=== PATIENT | female | born 1945 | race Caucasian/White ===

== ENCOUNTER 2017-08-22 06:58 | Emergency (ER) | payer OTHER, BC ==
[~2017-08-22] VITALS: Ht 177.8 cm; Wt 77.9 kg
[2017-08-22 07:11] VITALS: TEMP 36.8; Ht 177.8 cm; Wt 77.9 kg
[2017-08-22] MEDS ORDERED: SODIUM CHLORIDE 0.9% 1000ML 1,000 ML IV STA (07:25)
[2017-08-22 07:40] LABS: BASO % 0.2 %; BASO ABS # 0.01 K/uL (0-0.2); EOS % 0.2 %; EOS ABS # 0.01 K/uL (0-0.5); HEMATOCRIT 40.1 % (37-47); HEMOGLOBIN 13.7 g/dL (12.0-16.0); IG# 0.01 K/uL (0.00-0.02); LYMPH % 19.3 %; LYMPH ABS # 0.88 K/uL (1.2-3.4); MEAN CELL VOLUME 92.4 fL (80-100); MEAN CORPUSCULAR HEMOGLOBIN 31.6 pg (25-34); MEAN CORPUSCULAR HGB CONC 34.2 g/dl (32-36); MEAN PLATELET VOLUME 10.9 fL (7.4-10.4); MONO % 7.4 %; MONO ABS # 0.34 K/uL (0.11-0.59); NEUT % 72.7 %; NEUT ABS # 3.32 K/uL (1.4-6.5); PLATELET COUNT 165 K/uL (130-400); WHITE BLOOD COUNT 4.57 K/uL (4.8-10.8)
--- NOTE | 2017-08-22 07:40 | DIAGNOSTIC IMAGING REPORT ---
CHEST ONE VIEW PORTABLE CLINICAL HISTORY: fever COMPARISON STUDY: No previous studies for comparison. FINDINGS: The cardiac and mediastinal contours are normal. There is no evidence of focal pulmonary consolidation. There is no evidence of failure. No pleural effusions are visualized.[ IMPRESSION: No active disease in the chest. Electronically signed by: Tashi Valerio M.D. 08/22/2017 7:38 AM Dictated Date/Time: 08/22/2017 7:38 AM
[2017-08-22] MEDS ORDERED: OPTIRAY 320 IV PRN (07:45)
[2017-08-22 07:54] LABS: ALBUMIN 3.7 gm/dl (3.4-5.0); ALT/SGPT 24 U/L (12-78); BLOOD UREA NITROGEN 14 mg/dl (7-18); CALCIUM 8.7 mg/dl (8.5-10.1); CARBON DIOXIDE 25 mmol/L (21-32); CREATININE 0.86 mg/dl (0.60-1.20); GLUCOSE 103 mg/dl (70-99); LIPASE 196 U/L (73-393); POTASSIUM 3.7 mmol/L (3.5-5.1); SODIUM 137 mmol/L (136-145)
[2017-08-22 07:56] LABS: ALKALINE PHOSPHATASE 67 U/L (45-117); AST/SGOT 24 U/L (15-37); TOTAL PROTEIN 7.5 gm/dl (6.4-8.2)
[2017-08-22] MEDS ORDERED: SIMV5TAB2 PO (08:01)
[2017-08-22] MEDS ORDERED: LEVO25TA PO (08:01)
--- NOTE | 2017-08-22 08:42 | DIAGNOSTIC IMAGING REPORT ---
HEAD CT NONCONTRAST CT DOSE: HISTORY: b/l sinus pain TECHNIQUE: Multiaxial CT images of the head were performed without the use of intravenous contrast. Automated exposure control was utilized for this study. A dose lowering technique was utilized adhering to the principles of ALARA. Comparison: None. Findings: Small retention cysts within the floor of the right maxillary sinus. Otherwise, the paranasal sinuses and mastoid air cells are clear. The calvarium and skull base are intact. The ventricles and sulci are within normal limits. There is no mass, hematoma, midline shift, or acute infarct. Impression: No acute intracranial abnormality. Electronically signed by: Vipin Hays M.D. 08/22/2017 8:40 AM Dictated Date/Time: 08/22/2017 8:38 AM
--- NOTE | 2017-08-22 08:46 | DIAGNOSTIC IMAGING REPORT ---
CT ABD/PELVIS IV CONTRAST ONLY CLINICAL HISTORY: Abdominal and back pain COMPARISON STUDY: None. TECHNIQUE: Following the IV administration of 91 mL of Optiray-320, CT scan of the abdomen and pelvis was performed from the lung bases to the proximal femurs. Images are reviewed in the axial, sagittal, and coronal planes. IV contrast was administered without complication. A dose lowering technique was utilized adhering to the principles of ALARA. CT DOSE: 1274.64 mGy.cm FINDINGS: Lower chest: There are dependent atelectatic changes present. There is respiratory motion artifact. Liver: The contrast-enhanced liver is normal in size, contour, and attenuation. There is no intrahepatic biliary ductal dilatation. The hepatic veins and portal veins are patent. Gallbladder: Unremarkable. Spleen: Normal in size and attenuation. Pancreas: Unremarkable. Adrenal glands: Unremarkable. Kidneys: There is symmetric renal cortical enhancement. The kidneys are normal in size without hydronephrosis. Bowel: There are no transition zones indicate bowel obstruction. There is colonic diverticulosis. There are no acute peridiverticular inflammatory changes. There is no evidence of acute appendicitis. Visualization of the bowel is degraded due to motion artifact. Soft tissue prominence of the transverse colon, likely is secondary to visualization of enteric contents. It would be difficult with certainty to exclude a polypoid lesion. Peritoneum: There is no intraperitoneal free air or abdominal ascites. Vasculature: The abdominal aorta is normal in course and caliber. Adenopathy: None. Pelvic viscera: There is a 37 mm right uterine fundal fibroid. Skeletal structures: No destructive osseous lesions are seen. IMPRESSION: 1. Study slightly compromised due to motion artifact 2. No evidence of bowel obstruction. No evidence of free air 3. Diverticulosis. No evidence of acute diverticulitis 4. No evidence of acute appendicitis 5. 37 mm right uterine fundal fibroid Electronically signed by: Tashi Valerio M.D. 08/22/2017 8:44 AM Dictated Date/Time: 08/22/2017 8:38 AM
--- NOTE | 2017-08-22 10:17 | DIAGNOSTIC IMAGING REPORT ---
LUMBAR SPINE MRI WITH AND WITHOUT CONTRAST HISTORY: fevers w/ lower back pain TECHNIQUE: Multiplanar multisequence MRI of the lumbar spine was performed both before and after the intravenous administration of contrast. COMPARISON: None. FINDINGS: For the purpose of the report the L5-S1 disc space will be located on axial image 23 of 25. No fracture. No subluxation. Disc spaces are preserved. The conus terminates at the L1-L2 disc space level. No disc herniations. Mild facet osteoarthritis seen within the mid to lower lumbar spine. 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 No abnormal enhancement. No evidence for discitis/osteomyelitis. No paravertebral or epidural soft tissue masses or fluid collections. L1-L2: No significant central canal or neural foraminal narrowing. L2-L3: No significant central canal or neural foraminal narrowing. L3-L4: No significant central canal or neural foraminal narrowing. L4-L5: No significant central canal or neural foraminal narrowing. L5-S1: No significant central canal or neural foraminal narrowing. IMPRESSION: No significant abnormality identified within the lumbar spine. Electronically signed by: Vipin Hays M.D. 08/22/2017 10:16 AM Dictated Date/Time: 08/22/2017 10:08 AM
[2017-08-22 10:43] VITALS: BP 160/81; PULSE 67; O2SAT 95
--- NOTE | 2017-08-22 13:23 | EMERGENCY ROOM VISIT NOTE ---
History Report prepared by Racheal: Nomi Fraser Under the Supervision of: Dr. Flavio Cassidy D.O. First contact with patient: 07:14 Chief Complaint: FEVER Stated Complaint: FEVER,LWR BACK PAIN-HAD BLOOD WORK,X-RAY 3 History of Present Illness The patient is a 72 year old female who presents to the Emergency Room with complaints of waxing and waning lower back pain that started 5 nights ago. She states that for no reason at all, she stared having excruciating lower back pain , and says that she no history of back pain like this. The patient says that the pain does not change with twisting, turning, or bending. She notes that she took Advil the night of onset, and the pain went away, but the pain kept coming back, and she has been taking more Advil since then. The patient says that the pain causes her to have trouble sleeping at night. She rates the pain as a 9 out of 10 in severity. She notes that 3 nights ago, she started feeling feverish , and states that the highest reported temperature was 100.1, but last night, she thinks that her temperature went above 100.4, but it was not reported. She adds that last night, she felt a lot of sinus pressure and pain, and took a sinus decongestant. The patient states that she took Advil around 2 hours ago because her pain was bad. She says that she had an x-ray done yesterday at [facility]. The patient denies headache, change in vision, chest pain, shortness of breath, nausea, vomiting, diarrhea, weakness, numbness, pain with urination, and melena. She notes that she has not had any recent surgeries. The patient says that her last bowel movement was this morning. She notes no other medical problems, and no history of cancer. Source of History: patient Onset: 5 nights ago Position: back (lower) Symptom Intensity: excruciating Quality: other (pain) Timing: waxes/wanes Modifying Factors (Relieving): ibuprofen Associated Symptoms: + fevers (but no reported fever above 100.4), No headache, No chest pain, No SOB, No nausea, No vomiting, No melena, No diarrhea , No urinary symptoms Note: Associated symptoms: Sinus pressure. Review of Systems See HPI for pertinent positives & negatives. A total of 10 systems reviewed and were otherwise negative. Past Medical & Surgical Medical Problems: (1) No chronic problems Family History No pertinent family history Social History Smoking Status: Never Smoker Smokeless Tobacco Use: No Drug Use: none Occupation Status: retired Current/Historical Medications Scheduled Levothyroxine Sodium (Synthroid), Unknown Dose PO DAILY Simvastatin (Zocor), Unknown Dose PO QPM Allergies Coded Allergies: No Known Allergies (Unverified , 08/22/17) Physical Exam Vital Signs Date Time Temp Pulse Resp B/P (MAP) Pulse Ox O2 Delivery O2 Flow Rate FiO2 08/22/17 10:43 67 17 160/81 95 08/22/17 09:45 76 16 152/86 93 08/22/17 08:20 79 18 143/80 93 Room Air 08/22/17 07:11 36.8 99 18 133/79 95 Room Air Physical Exam GENERAL: Walking around room, alert, well appearing, well nourished, no distress , non-toxic EYE EXAM: normal conjunctiva. HEAD: Acute reproducible tenderness over frontal and maxillary sinuses. OROPHARYNX: no exudate, no erythema, lips, buccal mucosa, and tongue normal and mucous membranes are moist NECK: supple, no nuchal rigidity, no adenopathy, non-tender LUNGS: Clear to auscultation. Normal chest wall mechanics HEART: no murmurs, S1 normal and S2 normal ABDOMEN: abdomen soft, non-tender, normo-active bowel sounds, no masses, no rebound or guarding. BACK: Back is symmetrical on inspection and there is no deformity, no midline tenderness, no CVA tenderness. SKIN: no rashes and no bruising UPPER EXTREMITIES: upper extremities are grossly normal. LOWER EXTREMITIES: No pitting edema. NEURO EXAM: Normal sensorium, cranial nerves II-XII grossly intact, normal speech, no gross weakness of arms, no gross weakness of legs. Ambulates without difficulty. Medical Decision & Procedures ER Provider Diagnostic Interpretation: Radiology results as stated below per my review and the radiologist's interpretation: CHEST ONE VIEW PORTABLE CLINICAL HISTORY: fever COMPARISON STUDY: No previous studies for comparison. FINDINGS: The cardiac and mediastinal contours are normal. There is no evidence of focal pulmonary consolidation. There is no evidence of failure. No pleural effusions are visualized.[ IMPRESSION: No active disease in the chest. Electronically signed by: Tashi Valerio M.D. 08/22/2017 7:38 AM Dictated Date/Time: 08/22/2017 7:[address] ABD/PELVIS IV CONTRAST ONLY CLINICAL HISTORY: Abdominal and back pain COMPARISON STUDY: None. TECHNIQUE: Following the IV administration of 91 mL of Optiray-320, CT scan of the abdomen and pelvis was performed from the lung bases to the proximal femurs. Images are reviewed in the axial, sagittal, and coronal planes. IV contrast was administered without complication. A dose lowering technique was utilized adhering to the principles of ALARA. CT DOSE: 1274.64 mGy.cm FINDINGS: Lower chest: There are dependent atelectatic changes present. There is respiratory motion artifact. Liver: The contrast-enhanced liver is normal in size, contour, and attenuation. There is no intrahepatic biliary ductal dilatation. The hepatic veins and portal veins are patent. Gallbladder: Unremarkable. Spleen: Normal in size and attenuation. Pancreas: Unremarkable. Adrenal glands: Unremarkable. Kidneys: There is symmetric renal cortical enhancement. The kidneys are normal in size without hydronephrosis. Bowel: There are no transition zones indicate bowel obstruction. There is colonic diverticulosis. There are no acute peridiverticular inflammatory changes. There is no evidence of acute appendicitis. Visualization of the bowel is degraded due to motion artifact. Soft tissue prominence of the transverse colon, likely is secondary to visualization of enteric contents. It would be difficult with certainty to exclude a polypoid lesion. Peritoneum: There is no intraperitoneal free air or abdominal ascites. Vasculature: The abdominal aorta is normal in course and caliber. Adenopathy: None. Pelvic viscera: There is a 37 mm right uterine fundal fibroid. Skeletal structures: No destructive osseous lesions are seen. IMPRESSION: 1. Study slightly compromised due to motion artifact 2. No evidence of bowel obstruction. No evidence of free air 3. Diverticulosis. No evidence of acute diverticulitis 4. No evidence of acute appendicitis 5. 37 mm right uterine fundal fibroid Electronically signed by: Tashi Valerio M.D. 08/22/2017 8:44 AM Dictated Date/Time: 08/22/2017 8:[address] CT DOSE: HISTORY: b/l sinus pain TECHNIQUE: Multiaxial CT images of the head were performed without the use of intravenous contrast. Automated exposure control was utilized for this study. A dose lowering technique was utilized adhering to the principles of ALARA. Comparison: None. Findings: Small retention cysts within the floor of the right maxillary sinus. Otherwise, the paranasal sinuses and mastoid air cells are clear. The calvarium and skull base are intact. The ventricles and sulci are within normal limits. There is no mass, hematoma, midline shift, or acute infarct. Impression: No acute intracranial abnormality. Electronically signed by: Vipin Hays M.D. 08/22/2017 8:40 AM Dictated Date/Time: 08/22/2017 8:38 AM LUMBAR SPINE MRI WITH AND WITHOUT CONTRAST HISTORY: fevers w/ lower back pain TECHNIQUE: Multiplanar multisequence MRI of the lumbar spine was performed both before and after the intravenous administration of contrast. COMPARISON: None. FINDINGS: For the purpose of the report the L5-S1 disc space will be located on axial image . No fracture. No subluxation. Disc spaces are preserved. The conus terminates at the L1-L2 disc space level. No disc herniations. Mild facet osteoarthritis seen within the mid to lower lumbar spine. 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 No abnormal enhancement. No evidence for discitis/osteomyelitis. No paravertebral or epidural soft tissue masses or fluid collections. L1-L2: No significant central canal or neural foraminal narrowing. L2-L3: No significant central canal or neural foraminal narrowing. L3-L4: No significant central canal or neural foraminal narrowing. L4-L5: No significant central canal or neural foraminal narrowing. L5-S1: No significant central canal or neural foraminal narrowing. IMPRESSION: No significant abnormality identified within the lumbar spine. Electronically signed by: Vipin Hays M.D. 08/22/2017 10:16 AM Dictated Date/Time: 08/22/2017 10:08 AM Laboratory Results 08/22/17 07:30 Red Blood Count 4.34, Mean Corpuscular Volume 92.4, Mean Corpuscular Hemoglobin 31.6, Mean Corpuscular Hemoglobin Concent 34.2, Mean Platelet Volume 10.9, Neutrophils (%) (Auto) 72.7, Lymphocytes (%) (Auto) 19.3, Monocytes (%) (Auto) 7.4, Eosinophils (%) (Auto) 0.2, Basophils (%) (Auto) 0.2, Neutrophils # (Auto) 3.32, Lymphocytes # (Auto) 0.88, Monocytes # (Auto) 0.34, Eosinophils # (Auto) 0.01, Basophils # (Auto) 0.01 08/22/17 07:30 Test 08/22/17 07:30 08/22/17 10:00 White Blood Count 4.57 K/uL (4.8-10.8) Red Blood Count 4.34 M/uL (4.2-5.4) Hemoglobin 13.7 g/dL (12.0-16.0) Hematocrit 40.1 % (37-47) Mean Corpuscular Volume 92.4 fL (80-100) Mean Corpuscular Hemoglobin 31.6 pg (25-34) Mean Corpuscular Hemoglobin Concent 34.2 g/dl (32-36) Platelet Count 165 K/uL (130-400) Mean Platelet Volume 10.9 fL (7.4-10.4) Neutrophils (%) (Auto) 72.7 % Lymphocytes (%) (Auto) 19.3 % Monocytes (%) (Auto) 7.4 % Eosinophils (%) (Auto) 0.2 % Basophils (%) (Auto) 0.2 % Neutrophils # (Auto) 3.32 K/uL (1.4-6.5) Lymphocytes # (Auto) 0.88 K/uL (1.2-3.4) Monocytes # (Auto) 0.34 K/uL (0.11-0.59) Eosinophils # (Auto) 0.01 K/uL (0-0.5) Basophils # (Auto) 0.01 K/uL (0-0.2) RDW Standard Deviation 48.0 fL (36.4-46.3) RDW Coefficient of Variation 14.0 % (11.5-14.5) Immature Granulocyte % (Auto) 0.2 % Immature Granulocyte # (Auto) 0.01 K/uL (0.00-0.02) Erythrocyte Sedimentation Rate 15 mm/hr (0-21) Anion Gap 7.0 mmol/L (3-11) Est Creatinine Clear Calc Drug Dose 64.9 ml/min Estimated GFR () 78.8 Estimated GFR (Non- 68.0 BUN/Creatinine Ratio 16.8 (10-20) Calcium Level 8.7 mg/dl (8.5-10.1) Total Bilirubin 0.2 mg/dl (0.2-1) Direct Bilirubin < 0.1 mg/dl (0-0.2) Aspartate Amino Transf (AST/SGOT) 24 U/L (15-37) Alanine Aminotransferase (ALT/SGPT) 24 U/L (12-78) Alkaline Phosphatase 67 U/L (45-117) C-Reactive Protein < 0.29 mg/dl (0-0.29) Total Protein 7.5 gm/dl (6.4-8.2) Albumin 3.7 gm/dl (3.4-5.0) Lipase 196 U/L (73-393) Urine Color YELLOW Urine Appearance CLEAR (CLEAR) Urine pH 7.0 (4.5-7.5) Urine Specific [place] 1.031 (1.000-1.030) Urine Protein NEG (NEG) Urine Glucose (UA) NEG (NEG) Urine Ketones NEG (NEG) Urine Occult Blood NEG (NEG) Urine Nitrite NEG (NEG) Urine Bilirubin NEG (NEG) Urine Urobilinogen NEG (NEG) Urine Leukocyte Esterase NEG (NEG) Urine WBC (Auto) 0 /hpf (0-5) Urine RBC (Auto) 0-4 /hpf (0-4) Urine Hyaline Casts (Auto) 0 /lpf (0-5) Urine Epithelial Cells (Auto) 0-5 /lpf (0-5) Urine Bacteria (Auto) NEG (NEG) Laboratory results per my review. Medications Administered Medications (Trade) Dose Ordered Sig/Mavis Route Start Time Stop Time Status Last Admin Dose Admin Sodium Chloride 1,000 ml @ 999 mls/hr Q1H1M STAT IV 08/22/17 07:25 08/22/17 08:25 DC 08/22/17 07:35 999 MLS/HR ED Course ED COURSE: Vital signs were reviewed and showed normal vitals. The patients medical record was reviewed The above diagnostic studies were performed and reviewed. ED treatments and interventions as stated above. 1717: The patient was evaluated in room B3B. A complete history and physical examination was performed. 0725: NSS 1000 ml @ 999 mls/hr IV. 0747: Past medical records reviewed: BNP, LFTs were normal. CBC was normal. Small amount of esterase otherwise normal. X-ray of lumbar showed no acute fractures. 0908: The patient is still at MRI. 1037: Upon reevaluation, the patient is resting.I discussed my findings with the patient and she understands and agrees with the treatment plan. Based on the patients age, coexisting illnesses, exam and lab findings the decision to treat as an outpatient was made. The patient remained stable while under my care. The patient appeared well at the time of discharge. Medical Decision Differential diagnosis: Etiologies such as viral syndrome, otitis, pharyngitis, pneumonia, influenza, meningitis, urinary tract infection, sepsis, bacteremia, as well as others were entertained. Patient is a 72-year-old female who presents the ER for intermittent lower back pain associated with unrecorded fevers. She notes that this is been going on for the past 2-3 days. She notes that she also has sinus congestion were started in the past 24 hours. Labs were obtained at PCP. CBC today shows a mild leukopenia. Sed rate was normal. BMP along with LFTs, bilirubin, lipase and CRP was normal. UA was negative. CT of the head, and abdomen pelvis were unremarkable. Chest x-ray unremarkable. Lumbar MRI was performed for the concern of a possible epidural abscess with lower lumbar pain. This was negative. Patient was updated at bedside. Did discuss performing an LP but she declined. Patient was discharged follow-up with PCP following for refusal of care. Discussed with Pt concerning signs and symptoms to watch out for. Pt was instructed to follow up with their PCP and discussed with the patient their option to return to the ED at anytime for persistent or worsening symptoms. The appropriate anticipatory guidance and out-patient management, including indications for return to the emergency department, were explained at length to the patient and understood. Medication Reconcilliation Current Medication List: was personally reviewed by me Blood Pressure Screening Patient's blood pressure: Normal blood pressure Impression Primary Impression: Back pain Scribe Attestation The scribe's documentation has been prepared under my direction and personally reviewed by me in its entirety. I confirm that the note above accurately reflects all work, treatment, procedures, and medical decision making performed by me. Departure Information Dispostion Home / Self-Care Referrals Marcello Franklin MD (PCP) Patient Instructions Back Pain - [facility], [facility] Additional Instructions Please follow up with your primary care doctor with in the next 24 hours. Any worsening of your symptoms, please return to the ED immediately. This includes any fevers greater than 100.4, worsening pain, chest pain, shortness breath, persistent nausea, vomiting, unable to eat or drink, or any other concerning signs or symptoms from your standpoint. Any weakness or numbness in her arms or legs, paresthesias in her groin please return immediately to the ER. Please take Tylenol or Motrin as needed for pain. Problem Qualifiers Primary Impression: Back pain Back pain location: low back pain Chronicity: acute Back pain laterality: unspecified Sciatica presence: unspecified whether sciatica present Qualified Codes: M54.5 - Low back pain
== END 2017-08-22 10:43 | disposition home or self-care (01) ==
LOC: C.EDB 07:00
DX: M54.5 Low back pain (principal)